=== PATIENT | male | born 1940 | race Caucasian/White ===

== ENCOUNTER 2020-06-17 16:25 | Inpatient (IN) | payer OTHER, MEDICARE ==
[~2020-06-17] VITALS: Ht 188 cm; Wt 85.7 kg
[2020-06-17] MEDS ORDERED: cloNIDine HCL 0.1 MG TAB PO ONE (16:45)
[2020-06-17] MEDS ORDERED: cloNIDine HCL 0.1 MG TAB ONE ×2 (16:54→16:57)
[2020-06-17] MEDS ORDERED: LABETALOL HCL 5 MG/ML 4ML SYRINGE IV ONE ×3 (17:00→19:30)
[2020-06-17] MEDS ORDERED: SODIUM CHLORIDE 0.9% 500 ML IV ONE (17:15)
[2020-06-17 18:20] LABS: Basophils # (auto) 0 10 ^3/uL (0-0.2); Eosinophils # (auto) 0 10 ^3/uL (0-0.8); Hemoglobin 17.1 g/dL (13.5-17.5); Lymphocytes # (auto) 1.2 10 ^3/uL (0.4-5.4); Lymphocytes % (auto) 18.6 % (10.0-50.0); Mean Corpuscular Hemoglobin 34.7 pg (28.0-32.0); Neutrophils # (auto) 4.9 10 ^3/uL (1.6-8.6)
[2020-06-17 18:22] LABS: Basophils % (auto) 0.3 % (0.0-2.0); Eosinophils % (auto) 0.2 % (0.0-7.0); Hematocrit 49.2 % (41.0-53.0); Mean Corpuscular Hgb Conc. 34.7 g/dL (32.0-36.0); Mean Corpuscular Volume 100.1 fL (80.0-100.0); Monocytes # (auto) 0.5 10 ^3/uL (0-1.3); Neutrophils % (auto) 73.9 % (37.0-80.0); Platelet Count (auto) 220 10^3/uL (140-450); Red Blood Cells 4.91 10^6/uL (4.5-5.90); Red Cell Distribution Width 12.9 % (11.8-14.3); White Blood Cell 6.7 10^3/uL (4.4-10.8)
[2020-06-17 18:34] LABS: Alanine Aminotransferase 24 U/L (16-61); Albumin 4.2 g/dL (3.4-5.0); Anion Gap 8 (5-15); Aspartate Aminotransferase 13 U/L (15-37); BUN/Creatinine Ratio 15.6; Blood Urea Nitrogen 25 mg/dL (7-18); Calcium 10.1 mg/dL (8.5-10.1); Carbon Dioxide 23 mmol/L (21-32); Chloride 108 mmol/L (98-107); GFR African American 54 mL/min; GFR Non-African American 45 mL/min; Glucose 117 mg/dL (74-106); Potassium 3.8 mmol/L (3.5-5.1); Sodium 139 mmol/L (136-145)
[2020-06-17 18:39] LABS: Alkaline Phosphatase 76 U/L (45-117); Bilirubin, Total 1.8 mg/dL (0.2-1.0)
[2020-06-17 18:57] LABS: Urine Amorphous Crystal FEW /hpf (None Seen); Urine Bacteria NONE SEEN /hpf (None Seen); Urine Blood 2+ /uL (Negative); Urine Mucus FEW (None Seen); Urine Specific Gravity 1.016 (1.001-1.035); Urine WBC 109 /hpf (0 - 3); Urine WBC Clumps PRESENT /hpf (None Seen)
[2020-06-17] MEDS ORDERED: cefTRIAXone 1GM/50ML D5W 50 ML IV ONE (19:15)
[2020-06-17] MEDS: SODIUM CHLORIDE 0.9% 1,000 ML IV SCH (19:45)
[2020-06-17] MEDS ORDERED: SODIUM CHLORIDE 0.9% 1,000 ML IV ONE (19:45)
[2020-06-17] MEDS ORDERED: LABETALOL HCL 5 MG/ML 4ML SYRINGE IV PRN (19:45)
[2020-06-17] MEDS ORDERED: dilTIAZem 25 MG/5 ML VIAL IV ONE (19:45)
[2020-06-17] MEDS ORDERED: MORPHINE SULF INJ 2 MG/ML SYRINGE 1ML IV PRN ×2 (19:45)
[2020-06-17] MEDS ORDERED: ONDANSETRON HCL 4 MG/2 ML VIAL IV PRN (19:45)
[2020-06-17] MEDS ORDERED: GLUCAGON HYDROCHLORIDE (RDNA) 1 MG VIAL IV ONE (19:45)
[2020-06-17] MEDS ORDERED: NITROGLYCERIN 0.4 MG SL TAB SL PRN (19:45)
[2020-06-18] MEDS: SODIUM CHLORIDE 0.9% 1,000 ML IV SCH ×2 (03:30→14:31)
[2020-06-18 06:23] LABS: Basophils # (auto) 0 10 ^3/uL (0-0.2); Basophils % (auto) 0.5 % (0.0-2.0); Eosinophils # (auto) 0.2 10 ^3/uL (0-0.8); Eosinophils % (auto) 2.8 % (0.0-7.0); Hematocrit 42.2 % (41.0-53.0); Hemoglobin 14.2 g/dL (13.5-17.5); Lymphocytes # (auto) 1.5 10 ^3/uL (0.4-5.4); Lymphocytes % (auto) 24.2 % (10.0-50.0); Mean Corpuscular Hgb Conc. 33.6 g/dL (32.0-36.0); Mean Corpuscular Volume 101.3 fL (80.0-100.0); Monocytes # (auto) 0.5 10 ^3/uL (0-1.3); Monocytes % (auto) 7.6 % (0.0-12.0); Neutrophils % (auto) 64.9 % (37.0-80.0); Nucleated Red Blood Cells % 0.1 %; Platelet Count (auto) 180 10^3/uL (140-450); Red Blood Cells 4.17 10^6/uL (4.5-5.90); White Blood Cell 6.1 10^3/uL (4.4-10.8)
[2020-06-18 06:41] LABS: Calcium 8.7 mg/dL (8.5-10.1); Potassium 3.7 mmol/L (3.5-5.1)
[2020-06-18 06:44] LABS: BUN/Creatinine Ratio 20.3
[2020-06-18] MEDS ORDERED: PANTOPRAZOLE 40 MG/10 ML VIAL INJ IV SCH (10:00)
[2020-06-18 12:02] LABS: INR 1.07 (0.9-1.15); Partial Thromboplastin Time 27.6 sec (23.0-31.2)
[2020-06-18] MEDS ORDERED: SODIUM CHLORIDE LOCK 10 ML ONE (12:14)
[2020-06-18] MEDS ORDERED: LIDOCAINE VISCOUS 2% 15ML UD ONE (12:15)
[2020-06-18] MEDS ORDERED: diphenhdrAMINE HCL 50 MG/1 ML VL ONE (12:15)
[2020-06-18] MEDS: MIDAZOLAM HCL 5 MG/ML-1ML VIAL ONE ×2 (13:02→13:05)
[2020-06-18] MEDS: fentaNYL CITRATE 100 MCG/2 ML VL ONE ×2 (13:02→13:05)
[2020-06-18] MEDS ORDERED: METOPROLOL TARTRATE 50 MG TAB PO ONE (14:30)
[2020-06-18] MEDS ORDERED: cloNIDine HCL 0.1 MG TAB PO PRN (14:30)
[2020-06-18] MEDS ORDERED: amLODIPine BESYLATE 5 MG TAB PO ONE (14:30)
[2020-06-18 14:56] VITALS: BP 141/85
[2020-06-18] MEDS ORDERED: cefTRIAXone 1GM/50ML D5W 50 ML IV SCH (21:00)
[2020-06-18] MEDS ORDERED: METOPROLOL TARTRATE 50 MG TAB PO SCH (22:00)
[2020-06-19] MEDS ORDERED: amLODIPine BESYLATE 5 MG TAB PO SCH (10:00)
== END 2020-06-18 15:18 | disposition home or self-care (01) | DRG 391 ==
LOC: ER 16:25 → OVERFLOW 16:26
PROVIDERS: ADMIT Nurse Practitioner Acute Care; ATTEND Family Medicine
PROC: 0DB88ZX Excision of Small Intestine, Via Natural or Artificial Opening Endoscopic, Diagnostic (ICD-10-PCS; 2020-06-18)
PROC: 0DB68ZX Excision of Stomach, Via Natural or Artificial Opening Endoscopic, Diagnostic (ICD-10-PCS; 2020-06-18)
PROC: 0DB48ZX Excision of Esophagogastric Junction, Via Natural or Artificial Opening Endoscopic, Diagnostic (ICD-10-PCS; principal; 2020-06-18 12:56)
DX: K22.2 Esophageal obstruction (principal); S27.819A Unspecified injury of esophagus (thoracic part), initial encounter; I16.9 Hypertensive crisis, unspecified; N17.9 Acute kidney failure, unspecified; N39.0 Urinary tract infection, site not specified; K22.10 Ulcer of esophagus without bleeding; K29.70 Gastritis, unspecified, without bleeding; T18.128A Food in esophagus causing other injury, initial encounter; N18.30 Chronic kidney disease, stage 3 unspecified; Z20.828 Contact with and (suspected) exposure to other viral communicable diseases; I12.9 Hypertensive chronic kidney disease with stage 1 through stage 4 chronic kidney disease, or unspecified chronic kidney disease; J32.9 Chronic sinusitis, unspecified; K44.9 Diaphragmatic hernia without obstruction or gangrene; K21.00 Gastro-esophageal reflux disease with esophagitis, without bleeding; X58.XXXA Exposure to other specified factors, initial encounter; N40.0 Benign prostatic hyperplasia without lower urinary tract symptoms; Z90.79 Acquired absence of other genital organ(s); Y93.89 Activity, other specified; Y92.89 Other specified places as the place of occurrence of the external cause; Y99.8 Other external cause status
CPT/HCPCS: 36415; 43239; 70490; 71250; 80048; 80053; 81001; 84484; 85025; 85610; 85730; 87086; 87426; C9113; G0378; J0696; J2250; J3490

== ENCOUNTER 2024-10-10 16:06 | Inpatient (IN) | payer OTHER, MEDICARE ==
[~2024-10-10] VITALS: Ht 190.5 cm; Wt 86.9 kg
--- NOTE | 2024-10-10 16:58 | ED.PDOC ---
History of Present Illness HPI Comments 83-year-old male who comes in with chief complaints of blurred vision as well as burning of the eyes. The patient states that the symptoms started three days ago. The patient also has some dysuria. The patient was brought to the emergency department's by a friend. The patient's blood pressure was elevated upon arrival with a diastolic of 108. The patient denies any headache or fever. Chief Complaint: High Blood Pressure Time Seen by MD: 16:20 Reviewed Notes: Nurses Notes, Medications, Allergies (No allergies to medications) Allergies: Coded Allergies: NO KNOWN ALLERGIES (Unverified , 06/17/20) Information Source: Patient Mode of Arrival: Wheelchair Severity: Moderate Timing: Days Duration: Since onset Prehospital treatment: None Associated signs and symptoms Bilateral burning of the eyes as well as blurred vision Past Medical History PAST MEDICAL HISTORY: HTN Past Medical History (Other): BPH Surgical History (Other): Tonsillectomy, prostate surgery Family History Family History: Reviewed,noncontributory to illness Social History Smoker: Non-Smoker Alcohol: Denies ETOH Use Drugs: Denies Drug Use Lives In: Home Constitutional: denies: chills, diaphoresis, fatigue, fever, malaise, sweats, weakness, others EENTM: reports: eye redness, others (Burning eyes); denies: blurred vision, double vision, ear bleeding, ear discharge, ear drainage, ear pain, ear ringing, eye pain, hearing loss, mouth pain, mouth swelling, nasal discharge, nose bleeding, nose congestion, nose pain, photophobia, tearing, throat pain, throat swelling, voice changes Respiratory: denies: cough, hemoptysis, orthopnea, SOB at rest, shortness of breath, SOB with excertion, stridor, wheezing, others Cardiovascular: denies: chest pain, dizzy spells, diaphoresis, Dyspnea on exertion, edema, irregular heart beat, left arm pain, lightheadedness, palpitations, PND, syncope, others Gastrointestinal: denies: abdomen distended, abdominal pain, blood streaked bowels, constipated, diarrhea, dysphagia, difficulty swallowing, hematemesis, melena, nausea, poor appetite, poor fluid intake, rectal bleeding, rectal pain, vomiting, others Genitourinary: denies: burning, dysuria, flank pain, frequency, hematuria, incontinence, penile discharge, penile sore, pain, testicle pain, testicle swelling, urgency, others Neurological: denies: dizziness, fainting, headache, left sided numbness, left sided weakness, numbness, paresthesia, pre-existing deficit, right sided numbness, right sided weakness, seizure, speech problems, tingling, tremors, weakness, others Musculoskeletal: denies: back pain, gout, joint pain, joint swelling, muscle pain, muscle stiffness, neck pain, others Integumetry: denies: bruises, change in color, change in hair/nails, dryness, laceration, lesions, lumps, rash, wounds, others Allergic/Immunocompromised: denies: Difficulty Healing, Frequent Infections, Hives, Itching, others Hematologic/Lymphatic: denies: anemia, blood clots, easy bleeding, easy bruising, swollen glands, others Endocrine: denies: excessive hunger, excessive sweating, excessive thirst, excessive urination, flushing, intolerance to cold, intolerance to heat, unexplained weight gain, unexplained weight loss, others Psychiatric: denies: anxiety, bipolar disorder, depression, hopeless, panic disorder, schizophrenia, sleepless, suicidal, others Physical Exam General Appearance: Mild Distress HEENT: Normal ENT Inspection, Pharynx Normal, TMs Normal Neck: Full Range of Motion, Non-Tender, Normal, Normal Inspection Respiratory: Chest Non-Tender, Lungs Clear, No Accessory Muscle Use, No Respiratory Distress, Normal Breath Sounds Cardiovascular: No Edema, No JVD, No Murmur, No Gallop, Normal Peripheral Pulses, Regular Rate/Rhythm Breast Exam: Deferred Gastrointestinal: No Organomegaly, Non Tender, No Pulsatile Mass, Normal Bowel Sounds, Soft Genitalia: Deferred Pelvic: Deferred Rectal: Deferred Extremities: No calf tenderness, Normal capillary refill, Normal inspection, Normal range of motion, Non-tender, No pedal edema Musculoskeletal : Apperance: Normal Neurologic: Alert, medical [facility] sales II-XII nml as Tested, No Motor Deficits, Normal Affect, Normal Mood, No Sensory Deficits Cerebellar Function: Normal Reflexes: Normal Skin: Dry, Normal Color, Warm Lymphatic: No Adenopathy Was a procedure done? Was a procedure done?: No EKG EKG : Pulse Rate (adult): 90 [place]: Normal Cardiac Rhythm: NSR Hypertrophy: LVH ST: Nonsp Differential Dx Considerations may include: Conjunctivitis, CVA, generalized weakness X-Ray, Labs, Meds, VS Vital Signs Date Time Temp Pulse Resp B/P (MAP) Pulse Ox O2 Delivery O2 Flow Rate FiO2 10/10/24 16:58 90 10/10/24 16:42 98.2 99 19 186/109 (134) 98 98.2 Lab Test 10/10/24 17:15 10/10/24 16:50 Range/Units White Blood Count 4.8 4.4-10.8 10^3/uL Red Blood Count 4.45 L 4.5-5.90 10^6/uL Hemoglobin 15.3 13.5-17.5 g/dL Hematocrit 45.1 41.0-53.0 % Mean Corpuscular Volume 101.3 H 80.0-100.0 fL Mean Corpuscular Hemoglobin 34.4 H 28.0-32.0 pg Mean Corpuscular Hemoglobin Concent 33.9 32.0-36.0 g/dL Red Cell Distribution Width 13.6 11.8-14.3 % Platelet Count 183 140-450 10^3/uL Mean Platelet Volume 8.8 6.9-10.8 fL Neutrophils (%) (Auto) 51.8 37.0-80.0 % Lymphocytes (%) (Auto) 36.6 10.0-50.0 % Monocytes (%) (Auto) 8.6 0.0-12.0 % Eosinophils (%) (Auto) 2.5 0.0-7.0 % Basophils (%) (Auto) 0.5 0.0-2.0 % Neutrophils # (Auto) 2.5 1.6-8.6 10 ^3/uL Lymphocytes # (Auto) 1.8 0.4-5.4 10 ^3/uL Monocytes # (Auto) 0.4 0-1.3 10 ^3/uL Eosinophils # (Auto) 0.1 0-0.8 10 ^3/uL Basophils # (Auto) 0 0-0.2 10 ^3/uL Nucleated Red Blood Cells 0.1 % Sodium Level 140 136-145 mmol/L Potassium Level 4.1 3.5-5.1 mmol/L Chloride Level 108 H 98-107 mmol/L Carbon Dioxide Level 24 20-31 mmol/L Anion Gap 8 5-15 Blood Urea Nitrogen 21 9-23 mg/dL Creatinine 1.30 0.700-1.30 mg/dL Glomerular Filtration Rate Calc 55 >90 mL/min BUN/Creatinine Ratio 16.2 10.0-20.0 Serum Glucose 106 74-106 mg/dL Calcium Level 10.5 H 8.7-10.4 mg/dL POC Glucose 113 H 70-106 mg/dl EXAM: CT HEAD WITHOUT CONTRAST IMPRESSION: 1. No acute intracranial process. 2. Extensive chronic microvascular ischemic changes. Images Reviewed?: Images reviewed and evaluated by me Time of 1ST Reevaluation: 16:57 Reevaluation 1ST: Unchanged Patient Education/Counseling: Diagnosis, Treatment, Prognosis Family Education/Counseling: No Family Present Departure 1 Departure Time of Disposition: 18:45 Impression: Primary Impression: Accelerated hypertension Disposition: 09 ADMITTED INPATIENT Admit to: [facility] Condition: Fair Critical Care Note Critical Care Time?: No Stability Stability form required: Yes Unstable for transfer: Telemetry monitoring (Telemetry monitoring required), ED Physician Assesment (Clinical assesment) Heart Score Heart Score: Heart Score Response (Comments) Value History N/A 0 EKG N/A 0 Age N/A 0 Risk Factors N/A 0 Troponin N/A 0 Total 0 I personally scribed for NICHO DHILLON MD ([email or web address]) on 10/10/24 at 18:10. Electronically submitted by Delfino Singer ([email or web address]). NICHO DHILLON MD Oct 10, 2024 16:58
[2024-10-10 17:31] LABS: Basophils # (auto) 0 10 ^3/uL (0-0.2); Eosinophils # (auto) 0.1 10 ^3/uL (0-0.8); Lymphocytes # (auto) 1.8 10 ^3/uL (0.4-5.4); Mean Corpuscular Hgb Conc. 33.9 g/dL (32.0-36.0); Monocytes # (auto) 0.4 10 ^3/uL (0-1.3); Neutrophils # (auto) 2.5 10 ^3/uL (1.6-8.6); Nucleated Red Blood Cells % 0.1 %; White Blood Cell 4.8 10^3/uL (4.4-10.8)
[2024-10-10 17:32] LABS: Basophils % (auto) 0.5 % (0.0-2.0); Eosinophils % (auto) 2.5 % (0.0-7.0); Hematocrit 45.1 % (41.0-53.0); Hemoglobin 15.3 g/dL (13.5-17.5); Lymphocytes % (auto) 36.6 % (10.0-50.0); Mean Corpuscular Hemoglobin 34.4 pg (28.0-32.0); Mean Corpuscular Volume 101.3 fL (80.0-100.0); Monocytes % (auto) 8.6 % (0.0-12.0); Neutrophils % (auto) 51.8 % (37.0-80.0); Platelet Count (auto) 183 10^3/uL (140-450); Red Blood Cells 4.45 10^6/uL (4.5-5.90); Red Cell Distribution Width 13.6 % (11.8-14.3)
[2024-10-10 17:48] LABS: Potassium 4.1 mmol/L (3.5-5.1); Sodium 140 mmol/L (136-145)
[2024-10-10 17:49] LABS: Anion Gap 8 (5-15); Carbon Dioxide 24 mmol/L (20-31)
[2024-10-10 17:54] LABS: BUN/Creatinine Ratio 16.2 (10.0-20.0); Blood Urea Nitrogen 21 mg/dL (9-23); Glucose 106 mg/dL (74-106)
--- NOTE | 2024-10-10 18:03 | DVH ---
EXAM: CT HEAD WITHOUT CONTRAST HISTORY: blurry vision COMPARISON: None TECHNIQUE: Axial images were obtained and reformatted in coronal and sagittal planes. All CT scans at this medical facility are performed using dose modulation techniques as appropriate t o a performed exam including the following: Automated exposure control was utilized; adjustment of th e MA and/or KV according to patient size; and use of iterative reconstruction technique. CT Dose: CTDI volume is 64.57 mGy. Dose-length product is 1401.35 mGy*cm FINDINGS: Supratentorial Region: No evidence for large acute territorial ischemia. No intracranial hemorrhage is noted. Confluent white matter hypoattenuating foci are noted bilaterally, which typically reflect chronic microvascular ischemic changes. Posterior Fossa: No acute abnormality. Brainstem: Unremarkable. Sellar/Suprasellar Region: Unremarkable. Ventricles, Cisterns, Sulci: Age-appropriate. Orbits: Unremarkable. Paranasal Sinuses: A 2 cm mucous retention cyst noted in the left maxillary sinus.. Mastoid Air Cells: Unremarkable. Vasculature: Intracranial arterial calcified plaque formation noted. Bones/Soft Tissues: No acute abnormality. The calvarium is intact. Dental disease noted in the visua lized maxilla with periapical lucencies noted. Other: None. IMPRESSION: 1. No acute intracranial process. 2. Extensive chronic microvascular ischemic changes.
[2024-10-10 18:14] LABS: Calcium 10.5 mg/dL (8.7-10.4); Chloride 108 mmol/L (98-107)
[2024-10-10 19:43] LABS: Urine Bacteria None Seen /hpf (None Seen)
[2024-10-10 19:54] LABS: Urine Blood 1+ /uL (Negative); Urine Clarity Turbid (Clear); Urine Color Yellow (Yellow); Urine Mucus FEW (None Seen); Urine Protein, UAD TRACE (Negative); Urine Squamous Epithelial Cell FEW /hpf (<5); Urine Urobilinogen Normal (Negative); Urine WBC 201 /HPF (0-3); Urine pH 6.5 (5.0-9.0)
[2024-10-10 21:20] VITALS: PULSE 85; RESP 16; O2SAT 97
[2024-10-10] MEDS: hydrALAZINE HCL 20 MG/ML VL IV ONE (21:51)
[2024-10-10] MEDS ORDERED: ACETAMINOPHEN 325 MG TAB PO PRN (22:15)
[2024-10-10] MEDS ORDERED: HYDROcodone-ACET 5/325MG TAB PO PRN (22:15)
--- NOTE | 2024-10-10 22:20 | DVHHPRES ---
History of Present Illness Resident Creating Document: MARIO HIGGINS RESDIENT History of Present Illness This is an 83-year-old male with past medical history of hypertension came to the hospital due to burning eyes since 3 days. He also reports fever, frequency and dysuria. Patient denies fever, nausea, vomiting, chest pain, shortness of breath, or any bowel habit changes. Per patient, he is sensitive to orange juice, and upon taking orange juice he got bloody urine, 3 days back he took orange juice subsequently developed bloody urine, upon stopping were enjoys urine normalized, currently does not have any urine in blood. PMHx: Hypertension and BPH PSHx: Tonsillectomy, prostate surgery Family history: Not contribute Social history: Patient lives at home, per patient around 13 people lives at his home, and trying to taking out from the home (social worker health services consulted for home safety evaluation), denies smoking or any other drug use Home medication: Per patient he is taking EDTA for hypertension Allergic history: [place] juice Review of Systems Review of Systems General: patient denies fever, fatigue, weaknes, sweating, any recent changes in appetite and weight HEENT: reports B/L eye burning Cardiovascular: Denies chest pain, palpitations, dyspnea on exertion, orthopnea, or claudication. Respiratory: No cough, and wheezing. Gastrointestinal: Denies nausea, vomiting, dysphagia, odynophagia, heartburn, abdominal pain, flatulence, bloating, diarrhea, constipation, change in stool, or blood in stool. Genitourinary: reports frequency and dysuria Endocrine: No heat or cold intolerance, polydipsia, polyuria, and polyphagia. Neurological: No dizziness, extremity weakness and numbness, tremors, gait disturbance, seizures, and memory impairment. Psychiatric: Denies depression, anxiety,or insomnia. Musculoskeletal: Denies neck pain, stiffness and swelling, back pain, muscle weakness, joint pain, stiffness, swelling, or limited range of motion. Skin: No rashes, itching, skin lesion, changes in hair, nail, skin texture and breast. Hematologic/Lymphatic: Denies easy bruising, bleeding tendencies, or lymph node enlargement. Allergies: Coded Allergies: NO KNOWN ALLERGIES (Unverified , 06/17/20) Exam Vital Signs Vital Signs Date Time Temp Pulse Resp B/P (MAP) Pulse Ox O2 Delivery O2 Flow Rate FiO2 10/10/24 21:51 206/117 10/10/24 21:20 97.7 85 16 97 97.7 10/10/24 21:20 Room Air* 0 21 Exam General Appearance: Alert, Oriented X3, Cooperative, No acute distress HEENT: Mild bilateral eyes redness Respiratory: Clear to auscultation, Normal air movement Cardiovascular: Regular rate, Normal S1, Normal S2, No murmurs, no chest wall tenderness Abdominal: Mild suprapubic tenderness Extremities: No clubbing, No cyanosis, No edema, Normal pulses, No tenderness/swelling Skin: No rashes, No breakdown, No significant lesion Neuro: Normal gait, Normal speech, Strength at 5/5 X4 ext, Normal tone, Sensation intact, Cranial nerves 3-12 NL, Reflexes 2+ Psych/Mental Status: Mental status NL, Mood NL Labs/Xrays Labs Test 10/10/24 19:10 10/10/24 17:15 10/10/24 16:50 Range/Units Urine Color Yellow Yellow Urine Clarity Turbid H Clear Urine pH 6.5 5.0-9.0 Urine Specific [place] 1.020 1.001-1.035 Urine Protein Trace H Negative Urine Ketones Negative Negative Urine Blood 1+ H Negative /uL Urine Nitrite Negative Negative Urine Bilirubin Negative Negative Urine Urobilinogen Normal Negative mg/dL Urine Leukocyte Esterase 3+ Negative /uL Urine RBC 12 0 - 3 /hpf Urine Microscopic WBC 201 H 0-3 /HPF Urine Squamous Epithelial Cells Few <5 /hpf Urine Bacteria None seen None Seen /hpf Urine Mucus Few None Seen Urine Glucose Normal Normal mg/dL White Blood Count 4.8 4.4-10.8 10^3/uL Red Blood Count 4.45 L 4.5-5.90 10^6/uL Hemoglobin 15.3 13.5-17.5 g/dL Hematocrit 45.1 41.0-53.0 % Mean Corpuscular Volume 101.3 H 80.0-100.0 fL Mean Corpuscular Hemoglobin 34.4 H 28.0-32.0 pg Mean Corpuscular Hemoglobin Concent 33.9 32.0-36.0 g/dL Red Cell Distribution Width 13.6 11.8-14.3 % Platelet Count 183 140-450 10^3/uL Mean Platelet Volume 8.8 6.9-10.8 fL Neutrophils (%) (Auto) 51.8 37.0-80.0 % Lymphocytes (%) (Auto) 36.6 10.0-50.0 % Monocytes (%) (Auto) 8.6 0.0-12.0 % Eosinophils (%) (Auto) 2.5 0.0-7.0 % Basophils (%) (Auto) 0.5 0.0-2.0 % Neutrophils # (Auto) 2.5 1.6-8.6 10 ^3/uL Lymphocytes # (Auto) 1.8 0.4-5.4 10 ^3/uL Monocytes # (Auto) 0.4 0-1.3 10 ^3/uL Eosinophils # (Auto) 0.1 0-0.8 10 ^3/uL Basophils # (Auto) 0 0-0.2 10 ^3/uL Nucleated Red Blood Cells 0.1 % Sodium Level 140 136-145 mmol/L Potassium Level 4.1 3.5-5.1 mmol/L Chloride Level 108 H 98-107 mmol/L Carbon Dioxide Level 24 20-31 mmol/L Anion Gap 8 5-15 Blood Urea Nitrogen 21 9-23 mg/dL Creatinine 1.30 0.700-1.30 mg/dL Glomerular Filtration Rate Calc 55 >90 mL/min BUN/Creatinine Ratio 16.2 10.0-20.0 Serum Glucose 106 74-106 mg/dL Calcium Level 10.5 H 8.7-10.4 mg/dL POC Glucose 113 H 70-106 mg/dl Assessment/Plan Assessment/Plan Complicated UTI History of prostate surgery UA shows UTI picture Urine culture Empiric antibiotic, ceftriaxone IV fluid Conjunctivitis, possible bacterial Eyedrops Hypertensive urgency Start lisinopril and amlodipine Hydralazine p.r.n. DIET: Cardiac diet DVT PROPHYLAXIS: Lovenox GI PROPHYLAXIS:: Protonix CODE STATUS: Goal of care discussed for more than 18 minutes, full code DISPOSITION: Med/surge Patient's status and plan discussed with patient and the patient's friend at the bedside. Case discussed with Dr. Rodrigez. Plan discussed with: Patient, Other (RN) My Orders Orders - MARIO HIGGINS RESDIGONZALO Procedure Category Date Status Time Admit ADMIT 10/10/24 Verified 22:15 Code Status CODE 10/10/24 Verified 22:15 Vital Signs JUDIT 10/10/24 Verified 22:15 Review Orders With [facility] 10/10/24 Verified Adm. 22:15 Metoclopramide [facility] 10/10/24 Verified Injection (Reglan 22:15 Acetaminophen Tablet [facility] 10/10/24 Verified (Tylenol Tablet) 22:15 Notify Md Of Changes [facility] 10/10/24 Verified From Base 22:15 Advance Directive [facility] 10/10/24 Verified 22:15 Lipid Panel LAB 10/10/24 Verified 22:15 Patient Condition ORDERS 10/10/24 Verified 22:15 Allergies [facility] 10/10/24 Verified 22:15 Hydrocodone-Acet [facility] 10/10/24 Verified 5/325mg Tab ([place] 22:15 Drug Screen LAB 10/10/24 Verified 22:15 Lovenox 40mg [facility] 10/11/24 Verified 10:00 Stat Ekg For Chest [facility] 10/10/24 Verified Pain 22:15 Notify Md Of Changes [facility] 10/10/24 Verified From Base 22:15 General Lot Attendant For [facility] 10/10/24 Verified 24 Hours 22:15 Emergency Dysrhythmia [facility] 10/10/24 Verified Protocol 22:15 Rhythm Strips Once [facility] 10/10/24 Verified Every Shift 22:15 Date of Service: Oct 10, 2024 Billing Provider: FRANCIS RODRIGEZ MD Common Visit Codes: 77703-KNOZXHD INP/OBS CARE (HIGH) Secondary Visit Codes: 61146-NTKXRLGV CARE PLAN 30 MINUTES MARIO HIGGINS Oct 10, 2024 22:20 FRANCIS RODRIGEZ MD Oct 11, 2024 11:04
[2024-10-10 22:47] LABS: Triglycerides 82 mg/dL (< 150)
[2024-10-10 22:49] LABS: Cholesterol 193 mg/dL (< 200)
[2024-10-10 23:03] LABS: HDL Cholesterol 64 mg/dL (40-59); LDL Cholesterol 121 mg/dL (< 100)
[2024-10-10] MEDS: ARTIFICIAL TEARS 15ml EACHEYE ONE (23:15)
[2024-10-10] MEDS: LISINOPRIL 5 MG TAB PO ONE (23:15)
[2024-10-10] MEDS: amLODIPine BESYLATE 5 MG TAB PO ONE (23:15)
[2024-10-10] MEDS ORDERED: hydrALAZINE HCL 20 MG/ML VL IV PRN (23:15)
[2024-10-10] MEDS ORDERED: ARTIFICIAL TEARS 15ml EACHEYE PRN (23:15)
[2024-10-10 23:30] VITALS: RESP 18; O2SAT 98
[2024-10-10] MEDS: cefTRIAXone 1GM/50ML D5W 50 ML IV ONE (23:30)
[2024-10-10] MEDS: SODIUM CHLORIDE 0.9% 1,000 ML IV ONE ×2 (23:30)
[2024-10-10 23:45] LABS: Amphetamine Screen, Urine Neg (NEGATIVE); Barbiturate Scree,Urine Neg (NEGATIVE); Benzodiazephine Screen, Urine Neg (NEGATIVE); Cannabinoid Screen, Urine Neg (NEGATIVE); Cocaine Screen, Urine Neg (NEGATIVE); Opiate Scree,Urine Neg (NEGATIVE); Phencyclidine Screen, Urine Neg (NEGATIVE)
[2024-10-11] VITALS (8 sets, daily range): BP systolic 146–166; BP diastolic 73–98; PULSE 95–101; RESP 17–20; TEMP 97.6–98.6; O2SAT 95–100
[2024-10-11 07:42] LABS: Basophils # (auto) 0 10 ^3/uL (0-0.2); Basophils % (auto) 0.3 % (0.0-2.0); Eosinophils # (auto) 0.2 10 ^3/uL (0-0.8); Hematocrit 46.3 % (41.0-53.0); Hemoglobin 15.5 g/dL (13.5-17.5); Lymphocytes # (auto) 2.4 10 ^3/uL (0.4-5.4); Lymphocytes % (auto) 41.8 % (10.0-50.0); Mean Corpuscular Hemoglobin 33.8 pg (28.0-32.0); Mean Corpuscular Hgb Conc. 33.4 g/dL (32.0-36.0); Mean Corpuscular Volume 101.3 fL (80.0-100.0); Monocytes # (auto) 0.5 10 ^3/uL (0-1.3); Monocytes % (auto) 8.6 % (0.0-12.0); Neutrophils # (auto) 2.7 10 ^3/uL (1.6-8.6); Neutrophils % (auto) 46.3 % (37.0-80.0); Nucleated Red Blood Cells % 0.1 %; Platelet Count (auto) 189 10^3/uL (140-450); Red Blood Cells 4.57 10^6/uL (4.5-5.90); Red Cell Distribution Width 13.4 % (11.8-14.3); White Blood Cell 5.8 10^3/uL (4.4-10.8)
[2024-10-11 07:51] LABS: Alanine Aminotransferase 16 U/L (7-40); Albumin 4.5 g/dL (3.2-4.8); Alkaline Phosphatase 70 U/L (46-116); Anion Gap 7 (5-15); Aspartate Aminotransferase 15 U/L (13-40); Blood Urea Nitrogen 20 mg/dL (9-23); Calcium 9.5 mg/dL (8.7-10.4); Carbon Dioxide 25 mmol/L (20-31); Glucose 92 mg/dL (74-106); Sodium 140 mmol/L (136-145); Total Protein 7.2 g/dL (5.7-8.2)
[2024-10-11 07:54] LABS: Bilirubin, Total 1.3 mg/dL (0.2-1.0); Chloride 108 mmol/L (98-107)
[2024-10-11 08:20] LABS: Partial Thromboplastin Time 29.2 SEC (24.5-34.5); Prothrombin Time 10.6 sec (9.3-11.8)
[2024-10-11 09:54] LABS: Protein, Urine 31.9 mg/dL (1-14)
[2024-10-11] MEDS: LISINOPRIL 5 MG TAB PO SCH ×2 (09:54→22:45)
[2024-10-11 09:55] LABS: Creatinine, Urine 141.58 mg/dL (30.0-125.0)
[2024-10-11] MEDS: amLODIPine BESYLATE 5 MG TAB PO SCH (09:55)
[2024-10-11] MEDS: ENOXAPARIN SOD 40 MG/0.4 ML SYRINGE SC SCH (09:55)
[2024-10-11 10:22] LABS: Hepatitis B Surface Antigen Negative (Negative); Hepatitis C Antibody Negative (Negative)
--- NOTE | 2024-10-11 10:59 | ECG ---
[facility] Test Date: 2024-10-10 Test Time: 16:53:09 Pat Name: ANA BROWN Department: ED Room: 0292T A Gender: M Dredge Master: ED : 1940 Requested By: NICHO DHILLON Order Number: [id number] Reading MD: Shane Alvarado Measurements Intervals [place] Rate: 90 P: 54 RI: 131 QRS: -9 QRSD: 99 T: -9 QT: 389 QTc: 476 Interpretive Statements Sinus rhythm Abnormal R-wave progression, early transition Left ventricular hypertrophy Inferior infarct, age indeterminate Electronically Signed On 10-13-2024 17:24:11 PDT by Shane Alvarado Please click the below link to view image of tracing.
[2024-10-11 11:16] LABS: Erythrocyte Sedimentation Rate 5 mm/hr (0-20)
--- NOTE | 2024-10-11 12:36 | DVH ---
INDICATION: bigg complicated uti TECHNIQUE: Multiple real-time sonographic images of the kidneys and bladder were obtained. COMPARISON: None FINDINGS: The right kidney measures 9.0 cm in length, which is normal in size. There is increased ech ogenicity of the right kidney. No hydronephrosis. There is a right renal cyst measuring 1.7 cm. The left kidney measures 10.1 cm in length, which is normal in size. There is increased echogenicity of the left kidney. No hydronephrosis. Echogenic focus may represent a left renal stone measuring 1.8 cm. No large intraluminal masses are seen in the bladder. Prior to voiding the bladder volume measures vo lume 286 cc. Prostate is enlarged and measures 6.3 x 5.2 x 6.6 cm. IMPRESSION: Echogenic bilateral kidneys suggestive of chronic medical renal disease. Echogenic focus may represen t a left renal stone measuring 1.8 cm. Right renal cyst measuring 1.7 cm No hydronephrosis. Prostatomegaly.
--- NOTE | 2024-10-11 15:08 | DVH ---
Procedure: XY NECK FOR SOFT TISSUE Exam Date: 10/11/2024 02:36 PM History: PATIENT FEELS LIKE SOMETHING IS IN THROAT Comparison Study: None available at time of dictation. Soft Tissue Neck: AP and lateral views. Findings: No evidence of soft tissue swelling or radiopaque foreign body. Epiglottis appears normal. Impression: 1. Negative soft tissue neck.
--- NOTE | 2024-10-11 15:52 | DVHINCON2 ---
Date of service: Oct 11, 2024 Referring Physician Hospitalist Reason for Consultation Bilateral hydronephrosis History of Present Illness 83-year-old male with past medical history of hypertension came to the hospital due to burning eyes since 3 days. He also reports fever, frequency and dysuria. Patient denies fever, nausea, vomiting, chest pain, shortness of breath, or any bowel habit changes. Per patient, he is sensitive to orange juice, and upon taking orange juice he got bloody urine, 3 days back he took orange juice subsequently developed bloody urine, upon stopping were enjoys urine normalized, currently does not have any urine in blood. Past Medical History Hypertension and BPH Past Surgical History Tonsillectomy, prostate surgery Family History: FH: schizophrenia G8 MOTHER Allergies: Coded Allergies: NO KNOWN ALLERGIES (Unverified , 06/17/20) Home Meds Unable to Obtain Active Prescriptions or Reported Meds Current Medications Current Medications Medications (Trade) Dose Ordered Sig/Jesse Route PRN Reason Start Time Stop Time Status Last Admin Metoclopramide HCl (Reglan Injection) 10 mg Q4HP PRN IV NAUSEA / VOMITING 10/10/24 22:15 Acetaminophen (Tylenol Tablet) 650 mg Q6HP PRN PO PAIN SCALE 1-3 OR TEMP>100.4 10/10/24 22:15 Acetaminophen/ Hydrocodone Bitart ([place] 5/325MG Tab) 1 tab Q4HP PRN PO MODERATE PAIN (4-6 PAIN SCALE) 10/10/24 22:15 Enoxaparin Sodium (Lovenox) 40 mg DAILY SC 10/11/24 10:00 10/11/24 09:55 Amlodipine Besylate (Norvasc Tablet) 10 mg DAILY PO 10/11/24 10:00 10/11/24 09:55 Lisinopril (Zestril Tablet) 10 mg DAILY PO 10/11/24 10:00 10/11/24 09:54 Artificial Tears (Tears Naturale) 1 drop Q2HP PRN EACHEYE DRY EYES 10/10/24 23:15 Hydralazine HCl (Apresoline Injection) 10 mg Q6HP PRN IV SBP>170 10/10/24 23:15 Ceftriaxone Sodium 50 ml @ 100 mls/hr DAILY@2300 IV 10/11/24 23:00 Sodium Chloride 1,000 ml @ 60 mls/hr [id number] IV 10/11/24 11:15 Review of Systems General: patient denies fever, fatigue, weaknes, sweating, any recent changes in appetite and weight HEENT: reports B/L eye burning Cardiovascular: Denies chest pain, palpitations, dyspnea on exertion, orthopnea, or claudication. Respiratory: No cough, and wheezing. Gastrointestinal: Denies nausea, vomiting, dysphagia, odynophagia, heartburn, abdominal pain, flatulence, bloating, diarrhea, constipation, change in stool, or blood in stool. Genitourinary: reports frequency and dysuria Endocrine: No heat or cold intolerance, polydipsia, polyuria, and polyphagia. Neurological: No dizziness, extremity weakness and numbness, tremors, gait disturbance, seizures, and memory impairment. Psychiatric: Denies depression, anxiety,or insomnia. Musculoskeletal: Denies neck pain, stiffness and swelling, back pain, muscle weakness, joint pain, stiffness, swelling, or limited range of motion. Skin: No rashes, itching, skin lesion, changes in hair, nail, skin texture and breast. Hematologic/Lymphatic: Denies easy bruising, bleeding tendencies, or lymph node enlargement. Allergies: Coded Allergies: NO KNOWN ALLERGIES (Unverified , 06/17/20) Vital Signs Vital Signs Date Time Temp Pulse Resp B/P (MAP) Pulse Ox O2 Delivery O2 Flow Rate FiO2 10/11/24 13:00 98.2 98 17 149/84 (105) 98 98.2 10/11/24 08:00 Room Air* 0 21 Physical Exam Date Time Temp Pulse Resp B/P (MAP) Pulse Ox O2 Delivery O2 Flow Rate FiO2 10/10/24 21:51 206/117 10/10/24 21:20 97.7 85 16 97 97.7 10/10/24 21:20 Room Air* 0 21 Exam General Appearance: Alert, Oriented X3, Cooperative, No acute distress HEENT: Mild bilateral eyes redness Respiratory: Clear to auscultation, Normal air movement Cardiovascular: Regular rate, Normal S1, Normal S2, No murmurs, no chest wall tenderness Abdominal: Mild suprapubic tenderness Extremities: No clubbing, No cyanosis, No edema, Normal pulses, No tenderness/swelling Skin: No rashes, No breakdown, No significant lesion Neuro: Normal gait, Normal speech, Strength at 5/5 X4 ext, Normal tone, Sensation intact, Cranial nerves 3-12 NL, Reflexes 2+ Psych/Mental Status: Mental status NL, Mood NL Labs/Diagnostic Data Labs Test 10/11/24 11:48 10/11/24 07:10 10/10/24 19:10 10/10/24 17:15 Range/Units White Blood Count 5.8 4.4-10.8 10^3/uL Red Blood Count 4.57 4.5-5.90 10^6/uL Hemoglobin 15.5 13.5-17.5 g/dL Hematocrit 46.3 41.0-53.0 % Mean Corpuscular Volume 101.3 H 80.0-100.0 fL Mean Corpuscular Hemoglobin 33.8 H 28.0-32.0 pg Mean Corpuscular Hemoglobin Concent 33.4 32.0-36.0 g/dL Red Cell Distribution Width 13.4 11.8-14.3 % Platelet Count 189 140-450 10^3/uL Mean Platelet Volume 9.1 6.9-10.8 fL Neutrophils (%) (Auto) 46.3 37.0-80.0 % Lymphocytes (%) (Auto) 41.8 10.0-50.0 % Monocytes (%) (Auto) 8.6 0.0-12.0 % Eosinophils (%) (Auto) 3.0 0.0-7.0 % Basophils (%) (Auto) 0.3 0.0-2.0 % Neutrophils # (Auto) 2.7 1.6-8.6 10 ^3/uL Lymphocytes # (Auto) 2.4 0.4-5.4 10 ^3/uL Monocytes # (Auto) 0.5 0-1.3 10 ^3/uL Eosinophils # (Auto) 0.2 0-0.8 10 ^3/uL Basophils # (Auto) 0 0-0.2 10 ^3/uL Nucleated Red Blood Cells 0.1 % Erythrocyte Sedimentation Rate 5 0-20 mm/hr Prothrombin Time 10.6 9.3-11.8 sec Prothrombin Time INR 1.00 0.9-1.15 Activated Partial Thromboplast Time 29.2 24.5-34.5 SEC Sodium Level 140 136-145 mmol/L Potassium Level 4.0 3.5-5.1 mmol/L Chloride Level 108 H 98-107 mmol/L Carbon Dioxide Level 25 20-31 mmol/L Anion Gap 7 5-15 Blood Urea Nitrogen 20 9-23 mg/dL Creatinine 1.33 H 0.700-1.30 mg/dL Glomerular Filtration Rate Calc 53 >90 mL/min BUN/Creatinine Ratio 15.0 10.0-20.0 Serum Glucose 92 74-106 mg/dL Calcium Level 9.5 8.7-10.4 mg/dL Total Bilirubin 1.3 H 0.2-1.0 mg/dL Aspartate Amino Transferase (AST) 15 13-40 U/L Alanine Aminotransferase (ALT) 16 7-40 U/L Alkaline Phosphatase 70 46-116 U/L C-Reactive Protein High Sensitivity 0.04 <1.0 mg/dL Total Protein 7.2 5.7-8.2 g/dL Albumin 4.5 3.2-4.8 g/dL Hepatitis B Surface Antigen Negative Negative Hepatitis C Antibody Negative Negative Urine Color Yellow Yellow Urine Clarity Turbid H Clear Urine pH 6.5 5.0-9.0 Urine Specific [place] 1.020 1.001-1.035 Urine Protein Trace H Negative Urine Ketones Negative Negative Urine Blood 1+ H Negative /uL Urine Nitrite Negative Negative Urine Bilirubin Negative Negative Urine Urobilinogen Normal Negative mg/dL Urine Leukocyte Esterase 3+ Negative /uL Urine RBC 12 0 - 3 /hpf Urine Microscopic WBC 201 H 0-3 /HPF Urine Squamous Epithelial Cells Few <5 /hpf Urine Bacteria None seen None Seen /hpf Urine Mucus Few None Seen Urine Creatinine 141.58 H 30.0-125.0 mg/dL Urine Sodium 111 40-220 mmol/L Urine Glucose Normal Normal mg/dL Urine Total Protein 31.9 H 1-14 mg/dL Urine Opiates Screen Neg NEGATIVE Urine Fentanyl Screen Neg NEGATIVE Urine Barbiturates Screen Neg NEGATIVE Urine Phencyclidine Screen Neg NEGATIVE Urine Amphetamines Screen Neg NEGATIVE Urine Benzodiazepines Screen Neg NEGATIVE Urine Cocaine Screen Neg NEGATIVE Urine Cannabinoids Screen Neg NEGATIVE Troponin I High Sensitivity 5 </=54 ng/L Triglycerides Level 82 < 150 mg/dL Cholesterol Level 193 < 200 mg/dL LDL Cholesterol 121 H < 100 mg/dL HDL Cholesterol 64 H 40-59 mg/dL Vitamin B12 Level 608 211-911 pg/mL Vitamin D 25-Hydroxy 29.1 L 30.0-100 ng/mL Thyroid Stimulating Hormone (TSH) 2.70 0.55-4.78 uIU/mL Test 10/10/24 16:50 Range/Units POC Glucose 113 H 70-106 mg/dl PATIENT: ANA BROWN ACCT: [id number] UNIT: [id number] : 1940 LOC: [facility] ROOM / BED: 0292T / A AGE / SEX: 83 / M ADM STATUS: ADM IN SERVICE 1022 ORDERING PHYSICIAN: ROBB MENDOZA RESIDENT PROCEDURE(s): KIDUS - KIDNEY REASON: bigg complicated uti ORDER NUMBER(s): [id number], ACCESSION NUMBER(s): [id number] INDICATION: bigg complicated uti TECHNIQUE: Multiple real-time sonographic images of the kidneys and bladder were obtained. COMPARISON: None FINDINGS: The right kidney measures 9.0 cm in length, which is normal in size. There is increased echogenicity of the right kidney. No hydronephrosis. There is a right renal cyst measuring 1.7 cm. The left kidney measures 10.1 cm in length, which is normal in size. There is increased echogenicity of the left kidney. No hydronephrosis. Echogenic focus may represent a left renal stone measuring 1.8 cm. No large intraluminal masses are seen in the bladder. Prior to voiding the bladder volume measures volume 286 cc. Prostate is enlarged and measures 6.3 x 5.2 x 6.6 cm. IMPRESSION: Echogenic bilateral kidneys suggestive of chronic medical renal disease. Echogenic focus may represent a left renal stone measuring 1.8 cm. Right renal cyst measuring 1.7 cm No hydronephrosis. Prostatomegaly. ATED BY: MALOU PATEL MD DICTATED DATE/TIME: 10/11/24 1234 SIGNED BY: MALOU PATEL MD SIGNED DATE/TIME: 10/11/24 1234 CC: Assessment Possible renal stone, 1.8 cm left BPH CKD Plan/Recommendation CT Scan stone protocol Plan discussed with: Patient, Other HERNANDEZ MOLINA MD Oct 11, 2024 15:52
[2024-10-11] MEDS: SODIUM CHLORIDE 0.9% 1,000 ML IV SCH (17:05)
--- NOTE | 2024-10-11 17:36 | DVH ---
Exam: CT CT AB PEL WO CON-NO ORAL OR IV History: kidney stone Comparison Study: None available at time of dictation. TECHNIQUE: Multidetector CT of the abdomen and pelvis without IV contrast. Axial, coronal and sagitta l multiplanar reformats were obtained from the axial data set by the technologist. Radiation Dose Information: CT Dose: CTDI volume is 8.63 mGy. Dose-length product is 448.81 mGy*cm FINDINGS: Bibasilar atelectasis. Partially visualized heart is unremarkable. Liver, spleen, gallbladder, pancreas and adrenal glands unremarkable. 1.4 cm nonobstructing left renal lower pole calculus. Mild nonspecific bilateral perinephric fat stra nding. 1.5 cm right renal cyst. Ureters are unremarkable. Eywc-je-puusupwx distention of the urinary bladder with multiple diverticula from the dome. Largest measuring up to 2.7 x 1.8 cm Prostate is sig nificantly enlarged measuring 6 by 6.7 by 6.7 cm. Moderate size hiatal hernia. Stomach is mildly distended. Small bowel loops unremarkable. Appendix is not definitely visualized. Colonic Diverticulosis without diverticulitis. Small to moderate amount o f fecal material within the colon. There is diverticulosis of the terminal ileum without diverticulit is. No evidence of intraperitoneal free air or free fluid. No evidence of aortic aneurysm. Mppf-ac-nnvgykpw atherosclerotic calcification of the aorta and bilat eral iliacs. No significant lymphadenopathy. Soft tissues are unremarkable. Punctate Sclerotic focus over the left ischial bone T12 which may repr esent bone islands blastic lesions not excluded. Multiple small lytic lesions of the bilateral iliac bones. Severe degenerative changes of the lumbar spine. IMPRESSION: 1.4 cm nonobstructing left renal lower pole calculus. 1.5 cm right renal cyst. Rexg-yv-shenskfv distention of the urinary bladder with multiple urinary bladder dome diverticula. Significantly enlarged prostate. Recommend correlation with PSA. Moderate size hiatal hernia.
[2024-10-11] MEDS: METOCLOPRAMIDE HCL 5MG/ml INJ 2ml VIAL IV PRN (18:40)
--- NOTE | 2024-10-11 19:07 | DVHPNRES ---
Progress Note Date Seen: Oct 11, 2024 Resident Creating Document: ROBB MENDOZA RESIDENT Has the PT tested + for MRSA If YES, has PT been informed?: No Medical Necessity Reason Pt with a Central, PICC or Fol: No Subjective Review of Systems This is an 83-year-old male with past medical history of hypertension came to the hospital due to burning eyes since 3 days. He also reports fever, frequency and dysuria. Patient denies fever, nausea, vomiting, chest pain, shortness of breath, or any bowel habit changes. Per patient, he is sensitive to orange juice, and upon taking orange juice he got bloody urine, 3 days back he took orange juice subsequently developed bloody urine, upon stopping were enjoys urine normalized, currently does not have any urine in blood. Pt also states that he is having high blood pressures Previous episodes of dysphagia PMHx: Hypertension and BPH PSHx: Tonsillectomy, prostate surgery, EGD Family history: Not contribute Social history: Patient lives at home, per patient around 13 people lives at his home, and trying to taking out from the home (social services director consulted for home safety evaluation), denies smoking or any other drug use Home medication: Per patient he is taking EDTA for hypertension Allergic history: [place] juice Previous EGD: 1. The patient had a 4-5 cm sliding type hiatal hernia with a slight esophageal stricture at the GE junction ____. He had a 4-5 cm sliding type hiatal hernia with acute inflammatory changes at the GE junction with superficial ulceration, hyperemia, erythema, and this may be the site of the food impaction and underlying esophagitis. 2. Mild gastritis with erosions. Abdominal CT scan: 1.4 cm nonobstructing left renal lower pole calculus. 1.5 cm right renal cyst. Udlz-yo-qzpzfhgj distention of the urinary bladder with multiple urinary bladder dome diverticula. Significantly enlarged prostate. Recommend correlation with PSA. Moderate size hiatal hernia. Procedure: XY NECK FOR SOFT TISSUE Comparison Study: None available at time of dictation. Soft Tissue Neck: AP and lateral views. Findings: No evidence of soft tissue swelling or radiopaque foreign body. Epiglottis appears normal. Impression: 1. Negative soft tissue neck. Objective vital signs Vital Sign Date Time Temp Pulse Resp B/P (MAP) Pulse Ox O2 Delivery O2 Flow Rate FiO2 10/11/24 16:44 98.6 101 20 159/95 (116) 97 98.6 10/11/24 08:00 Room Air* 0 21 Total Intake and Output 10/10/24 10/10/24 10/11/24 15:00 23:00 07:00 Intake Total 0 ml Balance 0 ml medications Current Medications Medications Dose Ordered Sig/Jesse Route Start Time Stop Time Status Last Admin Dose Admin Metoclopramide HCl 10 mg Q4HP PRN IV 10/10/24 22:15 10/11/24 18:40 10 MG Acetaminophen 650 mg Q6HP PRN PO 10/10/24 22:15 Acetaminophen/ Hydrocodone Bitart 1 tab Q4HP PRN PO 10/10/24 22:15 Enoxaparin Sodium 40 mg DAILY SC 10/11/24 10:00 10/11/24 09:55 40 MG Amlodipine Besylate 10 mg DAILY PO 10/11/24 10:00 10/11/24 09:55 10 MG Lisinopril 10 mg DAILY PO 10/11/24 10:00 10/11/24 09:54 10 MG Artificial Tears 1 drop Q2HP PRN EACHEYE 10/10/24 23:15 Hydralazine HCl 10 mg Q6HP PRN IV 10/10/24 23:15 Ceftriaxone Sodium 50 ml @ 100 mls/hr DAILY@2300 IV 10/11/24 23:00 Sodium Chloride 1,000 ml @ 60 mls/hr [id number] IV 10/11/24 11:15 10/11/24 17:05 60 MLS/HR Examination General Appearance: Alert, Oriented X3, Cooperative, No acute distress HEENT: Mild bilateral eyes redness Respiratory: Clear to auscultation, Normal air movement Cardiovascular: Regular rate, Normal S1, Normal S2, No murmurs, no chest wall tenderness Abdominal: Mild suprapubic tenderness Extremities: No clubbing, No cyanosis, No edema, Normal pulses, No tenderness/swelling Skin: No rashes, No breakdown, No significant lesion Neuro: Normal gait, Normal speech, Strength at 5/5 X4 ext, Normal tone, Sensation intact, Cranial nerves 3-12 NL, Reflexes 2+ Psych/Mental Status: Mental status NL, Mood NL laboratory and microbiology Laboratory Tests 10/11/24 07:10 Test 10/11/24 07:10 Range/Units Serum Glucose 92 74-106 mg/dL Problem List/Assessment/Plan Problem List/Assessment/Plan Complicated UTI Left kidney stone BPH History of prostate surgery UA shows UTI picture Urine culture Empiric antibiotic, ceftriaxone IV fluid Urology consult Dysphagia Hiatal hernia Normal x ray previous EGD on 2019: biopsies negative for malignancy Protonix IV Pt passed swallow evaluation Conjunctivitis, possible bacterial Eyedrops Hypertensive urgency Start lisinopril BID and amlodipine daily Hydralazine p.r.n. DIET: Cardiac diet DVT PROPHYLAXIS: Lovenox GI PROPHYLAXIS:: Protonix CODE STATUS: Goal of care discussed for more than 18 minutes, full code DISPOSITION: Med/surge Case discussed with Dr Gallegos Plan discussed with: Patient, Other (rn) My Orders My Orders Orders - ROBB MENDOZA RESIDENT Procedure Category Date Status Time Urine Bacterial KRISHAN 10/11/24 In Process Culture 10:22 Psa Total+% Free LAB 10/11/24 In Process 10:22 Kidney US 10/11/24 Resulted 10:22 Sodium Chloride 0.9% PHA 10/11/24 In Process 11:15 * Urology Consult CONS 10/11/24 Transmitted 13:15 Date of Service: Oct 11, 2024 Billing Provider: MIKKI GALLEGOS DO Common Visit Codes: [id number] INP/OBS CARE(HIGH) ROBB MENDOZA RESIDENT Oct 11, 2024 19:06 MIKKI GALLEGOS DO Oct 17, 2024 06:48
[2024-10-11] MEDS: cefTRIAXone 1GM/50ML D5W 50 ML IV SCH (22:44)
[2024-10-12 01:00] VITALS: BP 141/90; PULSE 88; RESP 18; TEMP 98.2; O2SAT 95
[2024-10-12 05:00] VITALS: BP 102/73; PULSE 93; RESP 18; TEMP 97.7; O2SAT 96
[2024-10-12 06:53] LABS: Basophils # (auto) 0 10 ^3/uL (0-0.2); Hemoglobin 14.6 g/dL (13.5-17.5); Monocytes # (auto) 0.5 10 ^3/uL (0-1.3); Neutrophils # (auto) 2.9 10 ^3/uL (1.6-8.6); Red Cell Distribution Width 13.3 % (11.8-14.3); White Blood Cell 5.1 10^3/uL (4.4-10.8)
[2024-10-12 06:56] LABS: Basophils % (auto) 0.3 % (0.0-2.0); Eosinophils # (auto) 0.2 10 ^3/uL (0-0.8); Hematocrit 42.1 % (41.0-53.0); Lymphocytes # (auto) 1.6 10 ^3/uL (0.4-5.4); Lymphocytes % (auto) 30.8 % (10.0-50.0); Mean Corpuscular Hemoglobin 34.9 pg (28.0-32.0); Mean Corpuscular Hgb Conc. 34.6 g/dL (32.0-36.0); Mean Corpuscular Volume 100.9 fL (80.0-100.0); Neutrophils % (auto) 56.9 % (37.0-80.0); Nucleated Red Blood Cells % 0.1 %; Platelet Count (auto) 178 10^3/uL (140-450); Red Blood Cells 4.17 10^6/uL (4.5-5.90)
[2024-10-12 07:12] LABS: Alanine Aminotransferase 13 U/L (7-40); Albumin 4.2 g/dL (3.2-4.8); Alkaline Phosphatase 67 U/L (46-116); Anion Gap 8 (5-15); Aspartate Aminotransferase 15 U/L (13-40); BUN/Creatinine Ratio 16.3 (10.0-20.0); Blood Urea Nitrogen 20 mg/dL (9-23); Calcium 9.9 mg/dL (8.7-10.4); Carbon Dioxide 26 mmol/L (20-31); Glucose 88 mg/dL (74-106); Potassium 4.1 mmol/L (3.5-5.1); Sodium 142 mmol/L (136-145); Total Protein 6.7 g/dL (5.7-8.2)
[2024-10-12 07:13] LABS: Bilirubin, Total 2.5 mg/dL (0.2-1.0); Chloride 108 mmol/L (98-107)
[2024-10-12 08:00] VITALS: PULSE 101; O2SAT 100
[2024-10-12 08:07] LABS: PSA Free 2.95 ng/mL; Prostate Specific Antigen 10.3 ng/mL (0.0-4.0)
[2024-10-12 09:00] VITALS: BP 148/83; PULSE 85; RESP 16; TEMP 97.5; O2SAT 98
[2024-10-12] MEDS: PANTOPRAZOLE 40 MG/10 ML VIAL INJ IV SCH (09:42)
[2024-10-12 13:00] VITALS: BP 115/65; PULSE 84; RESP 19; TEMP 98; O2SAT 97
--- NOTE | 2024-10-12 13:03 | DVHPN2 ---
Progress Note - Dictate Date Seen: Oct 12, 2024 Has the PT tested + for MRSA If YES, has PT been informed?: No Medical Necessity Reason Pt with a Central, PICC or Fol: No Medical Necessity Reason Left renal stone vital signs Vital Sign Date Time Temp Pulse Resp B/P (MAP) Pulse Ox O2 Delivery O2 Flow Rate FiO2 10/12/24 09:43 148/83 10/12/24 09:00 97.5 85 16 98 97.5 10/12/24 08:00 Room Air* 0 21 Total Intake and Output 10/11/24 10/11/24 10/12/24 14:59 22:59 06:59 Intake Total 1000 ml 300 ml Output Total 600 ml Balance 400 ml 300 ml medications Current Medications Medications Dose Ordered Sig/Jesse Route Start Time Stop Time Status Last Admin Dose Admin Metoclopramide HCl 10 mg Q4HP PRN IV 10/10/24 22:15 10/11/24 18:40 10 MG Acetaminophen 650 mg Q6HP PRN PO 10/10/24 22:15 Acetaminophen/ Hydrocodone Bitart 1 tab Q4HP PRN PO 10/10/24 22:15 Enoxaparin Sodium 40 mg DAILY SC 10/11/24 10:00 10/12/24 09:43 40 MG Amlodipine Besylate 10 mg DAILY PO 10/11/24 10:00 10/12/24 09:42 10 MG Artificial Tears 1 drop Q2HP PRN EACHEYE 10/10/24 23:15 Hydralazine HCl 10 mg Q6HP PRN IV 10/10/24 23:15 Ceftriaxone Sodium 50 ml @ 100 mls/hr DAILY@2300 IV 10/11/24 23:00 10/11/24 22:44 100 MLS/HR Sodium Chloride 1,000 ml @ 60 mls/hr [id number] IV 10/11/24 11:15 10/11/24 17:05 60 MLS/HR Pantoprazole Sodium 40 mg DAILY IV 10/12/24 10:00 10/12/24 09:42 40 MG Lisinopril 10 mg BID PO 10/11/24 22:00 10/12/24 09:43 10 MG objective PATIENT: ANA BROWN ACCT: [id number] UNIT: [id number] : 1940 LOC: [facility] ROOM / BED: 0292T / A AGE / SEX: 83 / M ADM STATUS: ADM IN SERVICE 1549 ORDERING PHYSICIAN: HERNANDEZ MOLINA MD PROCEDURE(s): ABPL - CT AB PEL WO CON-NO ORAL OR IV REASON: kidney stone ORDER NUMBER(s): [id number], ACCESSION NUMBER(s): [id number] Exam: CT CT AB PEL WO CON-NO ORAL OR IV History: kidney stone Comparison Study: None available at time of dictation. TECHNIQUE: Multidetector CT of the abdomen and pelvis without IV contrast. Axial, coronal and sagittal multiplanar reformats were obtained from the axial data set by the technologist. Radiation Dose Information: CT Dose: CTDI volume is 8.63 mGy. Dose-length product is 448.81 mGy*cm FINDINGS: Bibasilar atelectasis. Partially visualized heart is unremarkable. Liver, spleen, gallbladder, pancreas and adrenal glands unremarkable. 1.4 cm nonobstructing left renal lower pole calculus. Mild nonspecific bilateral perinephric fat stranding. 1.5 cm right renal cyst. Ureters are unremarkable. Pihn-kw-ylxfpvit distention of the urinary bladder with multiple diverticula from the dome. Largest measuring up to 2.7 x 1.8 cm Prostate is significantly enlarged measuring 6 by 6.7 by 6.7 cm. Moderate size hiatal hernia. Stomach is mildly distended. Small bowel loops unremarkable. Appendix is not definitely visualized. Colonic Diverticulosis without diverticulitis. Small to moderate amount of fecal material within the colon. There is diverticulosis of the terminal ileum without diverticulitis. No evidence of intraperitoneal free air or free fluid. No evidence of aortic aneurysm. Dhws-sa-dkhcymbd atherosclerotic calcification of the aorta and bilateral iliacs. No significant lymphadenopathy. Soft tissues are unremarkable. Punctate Sclerotic focus over the left ischial bone T12 which may represent bone islands blastic lesions not excluded. Multiple small lytic lesions of the bilateral iliac bones. Severe degenerative changes of the lumbar spine. IMPRESSION: 1.4 cm nonobstructing left renal lower pole calculus. 1.5 cm right renal cyst. Ifzk-av-yppwkiag distention of the urinary bladder with multiple urinary bladder dome diverticula. Significantly enlarged prostate. Recommend correlation with PSA. Moderate size hiatal hernia. ATED BY: MICAELA ESPITIA DO DICTATED DATE/TIME: 10/11/24 173 SIGNED BY: MICAELA ESPITIA DO SIGNED DATE/TIME: 10/11/24 173 CC: laboratory and microbiology Laboratory Tests 10/12/24 05:46 Test 10/12/24 05:46 Range/Units Serum Glucose 88 74-106 mg/dL Problem List Left renal stone Bladder diverticuli BPH MERAZ Assessment/Plan Outpatient cystoscopy with left ESWL TBA Plan discussed with: Patient, Other HERNANDEZ MOLINA MD Oct 12, 2024 13:03
[2024-10-12] MEDS ORDERED: AML5T PO (14:10)
[2024-10-12] MEDS ORDERED: CIPR500T4 PO (14:10)
[2024-10-12] MEDS ORDERED: LISI-275 PO (14:10)
--- NOTE | 2024-10-12 14:59 | DVHDSRES ---
Discharge Summary Date of Admission Resident Creating Document: ROBB MENDOZA RESIDENT Oct 10, 2024 at 22:15 Date of Discharge: Oct 12, 2024 Admitting Diagnosis hypertensive urgency complicated UTI Labs/Diagnostic Data: Laboratory Results Test 10/12/24 05:46 10/11/24 11:48 10/11/24 07:10 10/10/24 19:10 White Blood Count 5.1 10^3/uL (4.4-10.8) Red Blood Count 4.17 10^6/uL (4.5-5.90) Hemoglobin 14.6 g/dL (13.5-17.5) Hematocrit 42.1 % (41.0-53.0) Mean Corpuscular Volume 100.9 fL (80.0-100.0) Mean Corpuscular Hemoglobin 34.9 pg (28.0-32.0) Mean Corpuscular Hemoglobin Concent 34.6 g/dL (32.0-36.0) Red Cell Distribution Width 13.3 % (11.8-14.3) Platelet Count 178 10^3/uL (140-450) Mean Platelet Volume 9.2 fL (6.9-10.8) Neutrophils (%) (Auto) 56.9 % (37.0-80.0) Lymphocytes (%) (Auto) 30.8 % (10.0-50.0) Monocytes (%) (Auto) 9.0 % (0.0-12.0) Eosinophils (%) (Auto) 3.0 % (0.0-7.0) Basophils (%) (Auto) 0.3 % (0.0-2.0) Neutrophils # (Auto) 2.9 10 ^3/uL (1.6-8.6) Lymphocytes # (Auto) 1.6 10 ^3/uL (0.4-5.4) Monocytes # (Auto) 0.5 10 ^3/uL (0-1.3) Eosinophils # (Auto) 0.2 10 ^3/uL (0-0.8) Basophils # (Auto) 0 10 ^3/uL (0-0.2) Nucleated Red Blood Cells 0.1 % Sodium Level 142 mmol/L (136-145) Potassium Level 4.1 mmol/L (3.5-5.1) Chloride Level 108 mmol/L (98-107) Carbon Dioxide Level 26 mmol/L (20-31) Anion Gap 8 (5-15) Blood Urea Nitrogen 20 mg/dL (9-23) Creatinine 1.23 mg/dL (0.700-1.30) Glomerular Filtration Rate Calc 58 mL/min (>90) BUN/Creatinine Ratio 16.3 (10.0-20.0) Serum Glucose 88 mg/dL (74-106) Calcium Level 9.9 mg/dL (8.7-10.4) Total Bilirubin 2.5 mg/dL (0.2-1.0) Aspartate Amino Transferase (AST) 15 U/L (13-40) Alanine Aminotransferase (ALT) 13 U/L (7-40) Alkaline Phosphatase 67 U/L (46-116) Total Protein 6.7 g/dL (5.7-8.2) Albumin 4.2 g/dL (3.2-4.8) Free Prostate Specific Antigen 2.95 ng/mL (N/A) Percent Free Prostate Specific Ag 28.6 % (.) Prostate Specific Antigen Total 10.3 ng/mL (0.0-4.0) Erythrocyte Sedimentation Rate 5 mm/hr (0-20) Prothrombin Time 10.6 sec (9.3-11.8) Prothrombin Time INR 1.00 (0.9-1.15) Activated Partial Thromboplast Time 29.2 SEC (24.5-34.5) C-Reactive Protein High Sensitivity 0.04 mg/dL (<1.0) Hepatitis B Surface Antigen Negative (Negative) Hepatitis C Antibody Negative (Negative) Urine Color Yellow (Yellow) Urine Clarity Turbid (Clear) Urine pH 6.5 (5.0-9.0) Urine Specific [place] 1.020 (1.001-1.035) Urine Protein Trace (Negative) Urine Ketones Negative (Negative) Urine Blood 1+ /uL (Negative) Urine Nitrite Negative (Negative) Urine Bilirubin Negative (Negative) Urine Urobilinogen Normal mg/dL (Negative) Urine Leukocyte Esterase 3+ /uL (Negative) Urine RBC 12 /hpf (0 - 3) Urine Microscopic WBC 201 /HPF (0-3) Urine Squamous Epithelial Cells Few /hpf (<5) Urine Bacteria None seen /hpf (None Seen) Urine Mucus Few (None Seen) Urine Creatinine 141.58 mg/dL (30.0-125.0) Urine Sodium 111 mmol/L (40-220) Urine Glucose Normal mg/dL (Normal) Urine Total Protein 31.9 mg/dL (1-14) Urine Opiates Screen Neg (NEGATIVE) Urine Fentanyl Screen Neg (NEGATIVE) Urine Barbiturates Screen Neg (NEGATIVE) Urine Phencyclidine Screen Neg (NEGATIVE) Urine Amphetamines Screen Neg (NEGATIVE) Urine Benzodiazepines Screen Neg (NEGATIVE) Urine Cocaine Screen Neg (NEGATIVE) Urine Cannabinoids Screen Neg (NEGATIVE) Test 10/10/24 17:15 10/10/24 16:50 Troponin I High Sensitivity 5 ng/L (</=54) Triglycerides Level 82 mg/dL (< 150) Cholesterol Level 193 mg/dL (< 200) LDL Cholesterol 121 mg/dL (< 100) HDL Cholesterol 64 mg/dL (40-59) Vitamin B12 Level 608 pg/mL (211-911) Vitamin D 25-Hydroxy 29.1 ng/mL (30.0-100) Thyroid Stimulating Hormone (TSH) 2.70 uIU/mL (0.55-4.78) POC Glucose 113 mg/dl (70-106) Other Laboratory Tests 10/12/24 05:46 Brief Hx & Hospital Course: An 83-year-old male with a history of hypertension and BPH was admitted with burning eyes, dysuria, frequency, and hematuria after ingesting orange juice. Symptoms resolved after stopping the juice. He also reported high blood pressures and had prior episodes of dysphagia. Notably, he has a history of hiatal hernia with GE junction inflammation, mild gastritis, and underwent prior EGD in 2019 showing no malignancy. Imaging revealed a 1.4 cm non-obstructing left renal stone, 1.5 cm right renal cyst, moderate bladder distention with dome diverticula, and significantly enlarged prostate. CT also showed a moderate hiatal hernia and degenerative lumbar spine changes. During hospitalization, he was treated for a complicated UTI with ceftriaxone and IV fluids, with urology consulted. He passed a swallow evaluation and was restarted on Protonix for GERD. His conjunctivitis was treated with eye drops. Hypertensive urgency was addressed with lisinopril, amlodipine, and PRN hydralazine. Discharge plan includes outpatient cystoscopy with planned ESWL for left renal stone. DC with oral AB and optimization of this blood pressure medication General Appearance: Alert, Oriented X3, Cooperative, No acute distress HEENT: Mild bilateral eyes redness Respiratory: Clear to auscultation, Normal air movement Cardiovascular: Regular rate, Normal S1, Normal S2, No murmurs, no chest wall tenderness Abdominal: Mild suprapubic tenderness Extremities: No clubbing, No cyanosis, No edema, Normal pulses, No tenderness/swelling Skin: No rashes, No breakdown, No significant lesion Neuro: Normal gait, Normal speech, Strength at 5/5 X4 ext, Normal tone, Sensation intact, Cranial nerves 3-12 NL, Reflexes 2+ Psych/Mental Status: Mental status NL, Mood NL Case discussed with Dr Gallegos Consults/Reason for consult urology due to kidney stone Operations or Procedures Exam: CT CT AB PEL WO CON-NO ORAL OR IV History: kidney stone Comparison Study: None available at time of dictation. TECHNIQUE: Multidetector CT of the abdomen and pelvis without IV contrast. Axial, coronal and sagittal multiplanar reformats were obtained from the axial data set by the technologist. Radiation Dose Information: CT Dose: CTDI volume is 8.63 mGy. Dose-length product is 448.81 mGy*cm FINDINGS: Bibasilar atelectasis. Partially visualized heart is unremarkable. Liver, spleen, gallbladder, pancreas and adrenal glands unremarkable. 1.4 cm nonobstructing left renal lower pole calculus. Mild nonspecific bilateral perinephric fat stranding. 1.5 cm right renal cyst. Ureters are unremarkable. Nrhj-as-sguvrzjk distention of the urinary bladder with multiple diverticula from the dome. Largest measuring up to 2.7 x 1.8 cm Prostate is significantly enlarged measuring 6 by 6.7 by 6.7 cm. Moderate size hiatal hernia. Stomach is mildly distended. Small bowel loops unremarkable. Appendix is not definitely visualized. Colonic Diverticulosis without diverticulitis. Small to moderate amount of fecal material within the colon. There is diverticulosis of the terminal ileum without diverticulitis. No evidence of intraperitoneal free air or free fluid. No evidence of aortic aneurysm. Kunj-av-cyyiqqzo atherosclerotic calcification of the aorta and bilateral iliacs. No significant lymphadenopathy. Soft tissues are unremarkable. Punctate Sclerotic focus over the left ischial bone T12 which may represent bone islands blastic lesions not excluded. Multiple small lytic lesions of the bilateral iliac bones. Severe degenerative changes of the lumbar spine. IMPRESSION: 1.4 cm nonobstructing left renal lower pole calculus. 1.5 cm right renal cyst. Azgj-ec-qklryjkp distention of the urinary bladder with multiple urinary bladder dome diverticula. Significantly enlarged prostate. Recommend correlation with PSA. Moderate size hiatal hernia. Condition at Discharge: Stable Final Diagnosis/Problems List Complicated UTI Left kidney stone BPH History of prostate surgery Dysphagia Hiatal hernia Conjunctivitis, possible bacterial Hypertensive urgency Discharge Disposition: Home Discharge Instruct/Medications Diet: Consistent carbohydrate, Cardiac 2g Na,low cholest Diet comment: Consistent carbohydrate Cardiac 2g Na,low cholest Activity: Light activity Follow Up/Referral: f/u with Dr Aldana due to nephrolithiasis Medications: see prescription Discharge Statement: "Patient was advised to return to the ER or call 911 if any headaches, dizziness, shortness of breath, chest pain, abdominal pain, bleeding, fevers, or worsening of medical condition. Patient was counseled about treatment plan, medications, possible side effects, patientverbalized understanding. All questions were answered to the best of my ability. This discharge took greater then 30 minutes in planning, reviewing documentation, counseling the patient, and discussing with other team members." ASSESSMENT ASSESSMENT Assessment UTI Hypertesnive urgency Kidney stone Date of Service: Oct 12, 2024 Billing Provider: MIKKI GALLEGOS DO Common Visit Codes: 96886-IPT/OBS DISCH DAY >30min ROBB MENDOZA RESIDENT Oct 12, 2024 14:59 MIKKI GALLEGOS DO Oct 17, 2024 06:49
[2024-10-12 15:55] VITALS: BP 149/85; PULSE 83; RESP 17; TEMP 97.8; O2SAT 96
== END 2024-10-12 15:55 | disposition home or self-care (01) | DRG 690 ==
LOC: ER 16:06 → OVERFLOW 22:15 → TELE-WESTW 10-11 03:03
PROVIDERS: ADMIT Internal Medicine; ATTEND Emergency Medicine
DX: N39.0 Urinary tract infection, site not specified (principal); I16.0 Hypertensive urgency; H10.89 Other conjunctivitis; N20.0 Calculus of kidney; N18.9 Chronic kidney disease, unspecified; N40.0 Benign prostatic hyperplasia without lower urinary tract symptoms; N28.1 Cyst of kidney, acquired; I12.9 Hypertensive chronic kidney disease with stage 1 through stage 4 chronic kidney disease, or unspecified chronic kidney disease; K44.9 Diaphragmatic hernia without obstruction or gangrene; R13.10 Dysphagia, unspecified; Z81.8 Family history of other mental and behavioral disorders
CPT/HCPCS: 36415; 70360; 70450; 74176; 76775; 80048; 80053; 80061; 80307; 81001; 82306; 82570; 82607; 82962; 84154; 84156; 84300; 84443; 84484; 85025; 85610; 85652; 85730; 86141; 86803; 87086; 87340; 92610; 93005; 96374; G0378; J2470